=== PATIENT | female | born 1990 | race Caucasian/White ===

== ENCOUNTER 2025-01-17 14:52 | Emergency (ER) | payer MEDICARE, OTHER, SELFPAY ==
[2025-01-17 15:00] VITALS: BP 116/66
--- NOTE | 2025-01-17 15:54 | ED.GENMED ---
History of Present Illness
General
Chief Complaint: Musculo-Skeletal Complaint
Source: patient
Time Seen by Provider: 01/17/25 15:31
History of Present Illness
History of Present Illness:
Note:
CHIEF COMPLAINT(S)
Hand pain following a fall while cleaning.
HISTORY OF PRESENT ILLNESS
The patient is a 34-year-old female who presents with hand pain following a fall during cleaning activities. She describes pain most prominently localized to the area near her fifth metacarpal. She reports that the injury was sustained without
striking an object or individual. Denies any patient is right-hand dominant. No other injuries were sustained. Patient states pain is moderate, worse with movement, did not take anything for pain prior to arrival.
Past History
Past History
ED Past Medical History: CVA and Hypercholesterolemia
ED Past Surgical History: None
Social History
Tobacco: Non-smoker
Alcohol: None
Drug: None
Personal: Single
Living: with family
Review of Systems
Review of Systems
All Other Systems: ROS reviewed and negative except as documented in HPI and ROS
Phy Exam
Physical Exam
Physical Exam:
GENERAL: Alert , in no apparent distress
EYE: conjunctiva clear
Head: Normocephalic atraumatic
NECK: Supple,
ENT: mmm.
LUNGS: no acute respiratory distress
NEUROLOGICAL: Alert and oriented
SKIN: Warm and dry, skin intact.
MUSCULOSKELETAL: Right hand: Mild soft tissue swelling around the fifth metacarpal with tenderness directly in this area. Pain worsens with range of motion of the digits. Extremity is otherwise warm and well-perfused, neurovascularly intact.
Easily palpable radial pulse and cap refills less than 2 seconds. Remainder of extremity is within normal limits and has full range of motion
PSYCH: Normal and appropriate interaction.
Scores
Heart Failure Risk
Heart Failure Risk Score: Not Applicable
Heart Score for Chest Pain Patients
STEMI patient?: Not applicable
Withdrawal Assessment of Alcohol
Withdrawal Assessment Completed?: Not applicable
Course
Orders/Labs/Results
Orders:
Orders
01/17/25 15:02
CR Wrist - Right Min 3 Views Urgent
Comment:
Reason For Exam: fall, pain/swelling
Hand, Right 3 View [CR Hand - Right Min 3 Views] Urgent
Comment:
Reason For Exam: fall, pain/swelling
Vital Signs
Initial and Last Documented VS:
Initial Vital Signs
Temp Pulse Resp BP Pulse Ox
98.7 F 90 17 116/66 99
01/17/25 15:00 01/17/25 15:00 01/17/25 15:00 01/17/25 15:00 01/17/25 15:00
Last Documented Vital Signs
Temp Pulse Resp BP Pulse Ox
98.7 F 90 17 116/66 99
01/17/25 15:00 01/17/25 15:00 01/17/25 15:00 01/17/25 15:00 01/17/25 15:00
Procedures
Splinting/Sling Placement
Right Wrist:
Procedure completed by: Hubert
Pre-splint extermity exam: neurovascular intact
Type of splint: ulnar gutter
Splint material: other (3 inch Ortho-Glass)
Splint checked by provider?: Yes
Normal distal neurovascular exam?: Yes
MDM/Problems Addressed
Differential Diagnosis Includes:
The Differential Diagnosis includes, in no particular order and is not limited to:
1. Fifth Metacarpal Fracture (Boxers Fracture)
2. Soft Tissue Contusion
3. Other Metacarpal Fracture
4. Distal Radius Fracture
5. Carpal Bone Fracture
6. Hand Strain or Sprain
7. Ligamentous Injury
8. Tendon Injury
9. Compartment Syndrome
10. Nerve Injury
MDM/Problems Addressed:
1. The patient has been fitted with a splint to immobilize the fifth metacarpal and instructed on its care and the importance of leaving it in place.
2. She has been advised to take analgesics such as Ibuprofen or Acetaminophen every four to six hours as needed for pain management.
3. I contacted Dr. Villarreal from [facility] via [place] [employer] as he has seen patient in past for previous injury. Patient planning to travel to [place] starting tomorrow for 3 weeks and will need close follow-up upon return home
4. Return precautions discussed
*Pulse Oximetry
Patient hypoxic: no
*Critical Care Note
Total Time (30-74mins, 75-104mins- exclusive of procedures): Not Applicable
Patient Management
Social determinants of health affecting care: Living situation
Discussion with other providers: Slot Manager
ED Attending Note
-
Portions of this chart may have been created with voice recognition software.� Occasional wrong word or��sound alike� substitutions may have occurred due to the inherent limitations of voice recognition software.
Discharge Plan
Departure
Patient Disposition: Home (Routine Discharge)
Date of Disposition: 01/17/25
Time of Disposition: 15:54
Patient with high blood pressure during this ER visit?: No
Discharge Problem:
Fracture of fifth metacarpal bone of right hand
Instructions: Hand Fracture ED
Referrals:
Diego Villarreal MD [Active, Orthopedics]
Lindy Mix MD [Family Provider, Family Practice]
Interventions
Interventions:
*Risk Screen - Suicide Last Done: 01/17/25 15:02
*General Assessment Last Done: 01/17/25 15:02
*Neglect/Abuse Screening Last Done: 01/17/25 15:02
*ED COVID-19 Vaccine History Last Done: 01/17/25 15:02
*Nursing Disposition Last Done: 01/17/25 16:01
ED-Musculoskeletal Assessment Last Done: 01/17/25 15:15
Discharge Date and Time
Discharge Date/Time: 01/17/25 16:02
Print Language: GREEN[place]
== END 2025-01-17 16:02 | disposition home or self-care (01) ==
LOC: EMR 14:52
PROVIDERS: EMERGENCY PHYSICIAN Emergency Medicine; FAMILY PHYSICIAN Family Medicine
DX: S62.306A Unspecified fracture of fifth metacarpal bone, right hand, initial encounter for closed fracture (principal); W19.XXXA Unspecified fall, initial encounter
CPT/HCPCS: 99283; 29125; 73110; 73130

== ENCOUNTER → 2025-07-19 08:54 | Outpatient (REF) | payer MEDICARE, OTHER, SELFPAY ==
[2025-07-19 11:08] LABS: ALT (SGPT) 21 U/L (0-35); AST (SGOT) 20 U/L (14-36); Albumin 4.8 g/dl (3.5-5.0); Alkaline Phosphatase 42 U/L (38-126); Blood Urea Nitrogen 10 mg/dl (7-17); Calcium 9.5 mg/dl (8.4-10.2); Carbon Dioxide 27 mmol/L (22-30); Chloride 102 mmol/L (98-107); Glucose 87 mg/dl (70-99); HDL Cholesterol 37 mg/dl; LDL Cholesterol, Calculated 64 mg/dl; Potassium 4.7 mmol/L (3.5-5.1); Sodium 137 mmol/L (135-145); Total Protein 7.6 g/dl (6.3-8.2); Very Low Density Lipoprotein 14 mg/dl (0-30); eGFR > 60.00
== END ==
LOC: REG 08:54
PROVIDERS: ATTENDING PHYSICIAN Family Medicine
DX: E78.5 Hyperlipidemia, unspecified (principal)
CPT/HCPCS: 36415; 80053; 80061